=== PATIENT | female | born 1975 | race African-American/Black ===

== ENCOUNTER 2024-01-30 23:13 | Inpatient (IN) | payer BC, SELFPAY ==
[2024-01-30] VITALS (10 sets, daily range): BP systolic 107–146; BP diastolic 74–93
[2024-01-30 18:00] LABS: Glucose - Point of Care 91 mg/dl (70-99)
[2024-01-30] MEDS: NARCAN 1 MG IV (18:44)
[2024-01-30 18:47] LABS: Venous Blood Gas B.E. 1.3 mmol/L (-4 to +4); Venous Blood Gas HCO3 25.9 mmol/L (22-27); Venous Blood Gas O2 Sat % 95.6 %; Venous Blood Gas pCO2 40 mmHg (35-48); Venous Blood Gas pH 7.42 (7.32-7.43); Venous Blood Gas pO2 88 mmHg (30-50)
[2024-01-30 18:50] LABS: % Basophils 0.8 % (0-2); % Eosinophils 1.7 % (0-6); % Immature Granulocytes 0.3 % (0-0.5); % Lymphocytes 32.8 % (20.5-51.1); % Monocytes 9.8 % (1.7-9.3); % Neutrophils 54.6 % (42.2-75.2); Absolute Basophils 0.1 10^3/uL (0-0.2); Absolute Eosinophils 0.1 10^3/uL (0-0.7); Absolute Lymphocytes 2.2 10^3/uL (1.2-3.4); Absolute Monocytes 0.6 10^3/uL (0.1-0.6); Absolute Neutrophils 3.6 10^3/uL (1.4-6.5); Hematocrit 34.4 % (37.0-47.0); Hemoglobin 11.6 g/dL (12.0-16.0); Mean Corp Hgb Conc. 33.7 g/dL (33.0-37.0); Mean Corpuscular Hgb 29.7 pg (27.0-31.0); Mean Platelet Volume 9.7 fL (7.4-10.4); Nucleated Red Blood Cells % 0 %; Platelet Count 296 10^3/uL (130-400); Red Blood Cell Count 3.91 10^6/uL (4.20-5.40); Red Cell Dist. Width 13.2 % (11.5-14.5); White Blood Cell Count 6.6 10^3/uL (4.8-10.8)
[2024-01-30 19:06] LABS: Lactic Acid 0.7 mmol/L (0.7-2.0)
[2024-01-30 19:19] LABS: Urine Albumin Negative (Neg - Trace); Urine Bilirubin Negative (Negative); Urine Character Clear (Clear); Urine Color Yellow; Urine Glucose Negative (Negative); Urine Ketone 2+ (Negative); Urine Leukocyte Negative (Negative); Urine Nitrite Negative (Negative); Urine Occult Blood Trace (Negative); Urine Specific Gravity 1.015 (<1.030); Urine Urobilinogen Negative (Neg - 1+)
[2024-01-30 19:24] LABS: Urine Red Blood Cell 0-2 /HPF (0-2); Urine White Cell 0-2 /HPF (0-5)
[2024-01-30 19:29] LABS: TSH Reflex To Free T4 0.45 uIU/ml (0.47-4.68)
[2024-01-30 19:36] LABS: Amphetamines Positive (Negative); Barbiturates Negative (Negative); Benzodiazepines Negative (Negative); Buprenorphine Negative (Negative); Cocaine Negative (Negative); Marijuana Negative (Negative); Methadone Negative (Negative); Methamphetamines Negative (Negative); Opiates Negative (Negative); Phencyclidine Negative (Negative); Tricyclic Antidepressants Negative (Negative)
[2024-01-30 19:51] LABS: Fentanyl, Urine Negative (Negative)
--- NOTE | 2024-01-30 19:51 | ED.GENMED ---
History of Present Illness
General
Chief Complaint: Unresponsive
Source: spouse and ambulance crew
Exam Limitations: altered mental status
Time Seen by Provider: 01/30/24 18:02
Nursing documentation reviewed up to this point in time: agreed with
Travel History
Have you had any contact with someone who has COVID-19?: Unable to Answer
Do you have any symptoms of coronavirus? Fever > 100 degrees, chills, cough, shortness of breath, sore throat, loss of taste or smell, muscle aches, or headache?: Unable to Answer
History of Present Illness
History of Present Illness:
48-year-old female with apparent past medical history of anemia and 'intestinal surgery' who per the emergency department via EMS with a change in mental status. Patient is unable or unwilling to speak or participate in history or exam. Per EMS
report and police who also arrived in the emergency room: Patient apparently drove her car into a [employer] driveway, exited her car and entered the [employer] car. Apparently this person called 911 and when police arrived on the scene she was
sitting in the car not responding to their commands. She was carrying her hand bag which apparently had a pill bottle and it. Police brought the pill bottle; it is a green cylindrical unlabeled bottle that contains 3 different kinds of pills which
our pharmacist found are paroxetine, avanafil, and omeprazole. Per EMS her Accu-Chek was normal, vitals normal and she was transported to the emergency room. On my initial assessment she will wince and respond to painful stimuli, occasionally open
her eyes and blink but she will not speak or follow commands. Fortunately during the course of our initial assessment patient cell phone rang and I was able to answer it and speak to her on the phone (Kylee Scott, ). He
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 Apparently she lives with her and children in [place]. She apparently has some prior history of intestinal surgery and has a history of chronic
anemia but no other chronic medical problems. He says that she does not use drugs or drink alcohol. He says that today she picked her daughter up from school and dropped her off at home because daughter was sick. Apparently patient then went to
drop her sister off at work in [place]. No one has heard from her since. When I put the on speaker phone and brought him over to the patient patient then began to interact with her �when he asked her what was wrong she would
not tell him, would only repeat the phrase 'Kylee, I am leaving you.'
Review of Systems
Review of Systems
Unable to obtain full review of systems at this time due to: non-verbal
All Other Systems: Not applicable
Phy Exam
Physical Exam
Physical Exam:
General: Laying in bed eyes closed but winces to painful stimuli and will occasionally open eyes�she answered a few yes or no questions for nurses but not answering any questions for me, interacted with as above on the phone
Head: Normocephalic, atraumatic
Eyes: Conjunctiva normal, EOMI, pupils are equal round and reactive to light bilaterally approximately 4 mm
Throat: Airway intact, handling secretions
Neck: Trachea midline, supple without meningismus
Lungs: Clear to auscultation bilaterally, no wheezing, rales, rhonchi
Heart: Regular rate and rhythm, no murmurs, gallops, or rubs
Abd: Soft, non distended, no apparent tenderness
Neuro: Cranial nerves grossly intact, speech fluid, good tone in all extremities but she does not cooperate with full neurologic assessment�she does respond to painful stimuli in all extremities
Skin: no rash or signs of trauma
Extremities: Warm and well-perfused, good pulses in all extremities
Scores
Heart Failure Risk
Heart Failure Risk Score: Not Applicable
Heart Score for Chest Pain Patients
STEMI patient?: Not applicable
Withdrawal Assessment of Alcohol
Withdrawal Assessment Completed?: Not applicable
Course
Orders/Labs/Results
Orders:
Orders
01/30/24 17:59
Naloxone [Narcan] 2 mg .ROUTE .[facility]
01/30/24 18:00
Naloxone [Narcan] 1 mg IV NOW STA
01/30/24 18:02
Electrocardiogram (*1) Urgent
Reason for Study: QTc Monitoring
CT Head W/o Iv Contrast Urgent
Comment:
Reason For Exam: unresponsive
EKG- Treatment ONCE
01/30/24 18:21
Complete Blood Count/With Diff Urgent
Free T4 Urgent
Lactate Level [Lactic Acid] Urgent
TSH Reflex To Free T4 Urgent
Venous Blood Gas Urgent
%Oxygen/Room Air: 100
01/30/24 18:54
Drug Screen, Urine [Urine Drug Abuse Screen] Urgent
Date Specimen was Collected: 01/30/24
Time Specimen was Collected: 18:47
Fentanyl, Urine Urgent
Urinalysis Reflex To Culture Urgent
Date Specimen was Collected: 01/30/24
Time Specimen was Collected: 18:47
Urine Microscopic Reflex Cult Urgent
01/30/24 19:09
Acetaminophen Routine
Alcohol Routine
Comprehensive Metabolic Panel Routine
Creatine Phosphokinase Routine
Magnesium Routine
Salicylate Routine
01/30/24 19:38
Electrocardiogram (*1) Urgent
Reason for Study: Fatigue / Weakness
EKG- Treatment ONCE
01/30/24 21:06
CSF Cell Count Stat
Lyme PCR, DNA [S] Urgent
Spinal Fluid Glucose Urgent
Spinal Fluid Protein Urgent
CSF Culture with Gram Stain Urgent
[facility]ERTO Source: [facility]
Specimen Description:
Gram Stain Urgent
[facility] Source: [facility]
Specimen Description:
Meningitis Panel, CSF by PCR Urgent
[facility]O Source: [facility]
Specimen Description:
01/30/24 21:07
CSF Cell Count Urgent
CSF Tube Number: 1
Comment: Tube #1
Levetiracetam Injectable [Keppra] 1,000 mg IV NOW STA
Thiamine Injection 100 mg IV NOW STA
01/30/24 21:08
NEUROLOGY CONSULT Urgent
Consulting Provider: Jam Mosley
Was physician already notified: Yes
01/30/24 22:13
CefTRIAXone [Rocephin] 2,000 mg IV NOW STA
Vancomycin 2000 mg IVPB x 1 LOADING DOSE Vancomycin [Vancocin] 2,000 mg 0.9% Sodium Chloride 500 ml [Nss] 500 ml IV NOW
01/30/24 22:13
Acyclovir [Zovirax Injection] 847.54 mg 0.9% Sodium Chloride 250 ml [Nss] 250 ml IV NOW
Abnormal Lab Results
01/30/24 01/30/24 01/30/24
18:21 18:54 19:09
RBC 3.91 L 10^6/uL
(4.20-5.40)
Hgb 11.6 L g/dL
(12.0-16.0)
Hct 34.4 L %
(37.0-47.0)
Monocytes % 9.8 H %
(1.7-9.3)
VBG pO2 88 H mmHg
(30-50)
Sodium 134 L mmol/L
(135-145)
Creatinine 0.5 L mg/dL
(0.6-1.0)
AST 37 H U/L
(14-36)
TSH (Reflex) 0.45 L uIU/ml
(0.47-4.68)
Urine Ketones 2+ A
(Negative)
Ur Occult Blood Reflex Trace A
(Negative)
Salicylates < 1.0 L mg/dl
(2.0-20.0)
Acetaminophen < 10 L ug/ml
(10-30)
Ur Amphetamines Screen Positive H
(Negative)
01/30/24 18:21
01/30/24 19:09
Vital Signs
Initial and Last Documented VS:
Initial Vital Signs
Pulse Resp BP Pulse Ox
97 16 124/75 100
01/30/24 17:55 01/30/24 17:55 01/30/24 17:55 01/30/24 17:55
Last Documented Vital Signs
Temp Pulse Resp BP Pulse Ox
36.8 C 91 25 131/86 100
01/30/24 20:10 01/30/24 20:34 01/30/24 20:34 01/30/24 20:34 01/30/24 20:34
Procedures
Lumbar Puncture
Indication for procedure:: encephalopathy
Procedure completed by: Neto De Leon MD
If no, reason: Emergency procedure
Anesthesia/sedation: 1% Lidocaine
Preparation: cleaned with Betadine
Position: decubitis
Needle Size: 18 gauge
Needle Type: Lumbar Needle
Number of attempts: 5
Unsuccessful atempt - no CSF obtained: Unsuccessful attempt, no CSF obtained
Dressing applied to puncture site: bandaid
Complications: other (dry tap)
MDM/Problems Addressed
Differential Diagnosis Includes:
Intracranial hemorrhage, uremia, hypoglycemia, electrolyte derangement, seizure with postictal period, encephalitis, drug intoxication, alcohol intoxication, neuropsychiatric issue; stroke considered somewhat less likely based on exam
MDM/Problems Addressed:
48-year-old female presents with a change in her mental status as described above. On arrival we performed an Accu-Chek which was normal. Her vital signs are all within normal limits. She is protecting her airway and will occasionally talk but
seems more unwilling to talk than unable. She has no signs of trauma, physical exam is as documented above. We did give her some Narcan without any change in her mental state. She was taken for stat CT head which was negative for any acute
pathology. We placed a large-bore IV and labs were sent off including a CBC and a CMP, VBG, lactate/CPK, thyroid studies, alcohol level, UDS, urinalysis, hCG. Will check an EKG. Will monitor closely on telemetry and reassess after this initial
workup.
Lab work reviewed: CBC shows mild anemia�patient has known history of anemia. CMP shows no clinically significant abnormalities. Her thyroid studies are essentially unremarkable. Her urinalysis is negative for infection. Tylenol and salicylate
levels negative. Her UDS was positive for amphetamines but her presentation today is really not consistent with amphetamine intoxication. Her alcohol level is negative. Her sister is now bedside�sister says that patient had a very busy day but
was in her normal state of health when she was last seen this afternoon. At this point no fever or preceding illness to suggest TALENT DEVELOP[employer] infection but I think at this point we will proceed with a lumbar puncture with in mentation without any other clear
etiology. Case discussed with neurology for consultation�recommended thiamine, loading with Keppra in case this is seizure with prolonged postictal; agreed with LP. Patient will need to be admitted for further assessment consideration for MRI, EEG
and further workup if LP nondiagnostic.
Multiple attempts at LP unsuccessful here in the ER. With no fever or clear meningeal signs, discussed with hospitalist and will plan hold on antimicrobials for now, can consider IR LP in the morning. Loaded with Keppra, given thiamine per neuro
recs. Will admit for continued monitoring evaluation. Mental status unchanged. Case discussed with hospitalist for admission.
*Radiology
Radiology exam reviewed: preliminary read by ED provider and radiology read reviewed
*Pulse Oximetry
Patient hypoxic: no
*EKG
Interpreted by ED Provider?: Yes
Heart Rate: 74
Rate: normal
Rhythm: sinus
Dorris: normal axis
Interval: normal interval
QRS Pattern: normal QRS
Ischemia: no ischemia
*Critical Care Note
Total Time (30-74mins, 75-104mins- exclusive of procedures): 38
comment:
Critical care statement: A total of 38 minutes of critical care time was provided for this patient. This includes management of unstable vital signs, evaluation of the patient at bedside, frequent reassessment, discussion with
consultants/hospitalist, and review of pertinent medical records. This time was separate from time utilized to perform any aforementioned documented procedures
Data Reviewed
Source: spouse, ambulance crew and police
ED Attending Note
-
Portions of this chart may have been created with voice recognition software.� Occasional wrong word or��sound alike� substitutions may have occurred due to the inherent limitations of voice recognition software.
Discharge Plan
Departure
Prescriptions:
No Action
cetirizine 10 mg Tablet
10 mg PO QPM PRN (Reason: allergies)
levothyroxine 25 mcg Tablet
25 mcg PO DAILY
omeprazole 20 mg Capsule,Delayed Release(Dr/Ec)
20 mg PO DAILY
montelukast 10 mg Tablet
10 mg PO DAILY
lisdexamfetamine 60 mg Capsule
60 mg PO DAILY
Referrals:
UNKNOWN,NO INTERVIEW [Family Provider] -
Interventions
Interventions:
*Risk Screen - Suicide Last Done: 01/30/24 17:55
*General Assessment Last Done: 01/30/24 18:35
*Neglect/Abuse Screening Last Done: 01/30/24 18:35
ED- Fall Risk Assessment Last Done: 01/30/24 18:35
*ED COVID-19 Vaccine History Last Done: 01/30/24 18:35
ED- Neurological Assessment Last Done: 01/30/24 18:10
Discharge Date and Time
Print Language: FRISIAN
[2024-01-30 20:18] LABS: ALT (SGPT) 21 U/L (0-35); AST (SGOT) 37 U/L (14-36); Acetaminophen < 10 ug/ml (10-30); Alcohol None Detected; Alkaline Phosphatase 70 U/L (38-126); Blood Urea Nitrogen 11 mg/dl (7-17); Calcium 9.5 mg/dl (8.4-10.2); Carbon Dioxide 24 mmol/L (22-30); Chloride 104 mmol/L (98-107); Creatine Phosphokinase 127 U/L (30-135); Glucose 89 mg/dl (70-99); Magnesium 1.9 mg/dl (1.6-2.3); Potassium 4.1 mmol/L (3.5-5.1); Salicylate < 1.0 mg/dl (2.0-20.0); Sodium 134 mmol/L (135-145); Total Bilirubin 0.5 mg/dl (0.2-1.3); Total Protein 6.6 g/dl (6.3-8.2); eGFR > 60.00
[2024-01-30 20:19] LABS: Free T4 1.13 ng/dl (0.78-2.19)
--- NOTE | 2024-01-30 21:51 | PHANOTE ---
Addendum entered by Abimael Coy 01/30/24 23:34:
01/30/2024, med rec tech, per spouse, pt. manages her own meds.; spouse does not know what meds. pt. takes.
Original Note:
01/30/2024, med rec tech, used recent pharmacy fill data to compile a list of pt.'s meds.; pt. has no [facility] records and pt. obtunded at time of interview.
[2024-01-30] MEDS: KEPPRA 1000 MG IV (22:27)
[2024-01-30] MEDS: THIAMINE INJECTION 100 MG IV (22:27)
--- NOTE | 2024-01-30 23:04 | HPS.HSE ---
Family Physician
-
Family Physician: NO INTERVIEW UNKNOWN
Chief Complaint
-
Confusion / Lethargy
History of Present Illness
Patient is a 48y F with PMH significant for obesity s/p gastric bypass, anxiety / depression who presents to ED after being found confused / poorly responsive by police. History is obtained from sister at the bedside and from ED / EMS reports.
Patient was in her usual / good state of health this AM and all day today. She drove from her home in [place], [place] to [place] this AM to pick her daughter up from school. Daughter was having health issues related to anxiety according to
patient's sister. Patient then drove her sister to [place] to drop her off at work at [employer] [facility] [employer] Patient dropped her sister off at 2:50 PM and - again - seemed completely normal at that time.
Later this afternoon (timing of this is not clear) - patient pulled into a driveway, exited her vehicle and entered the homeowner's vehicle. Police were called and responded to the scene where they found the patient to be poorly responsive, not
answering questions or following commands. She was brought to the ED for further evaluation and treatment. She was not witnessed by EMS or ED staff to have any tonic-clonic seizure activity.
In the ED, patient has been intermittently responsive - answering some questions / following some commands. At other times she is fully somnolent and not responsive to even noxious / painful stimuli.
Her sister arrived at the bedside in the interim and is able to provide additional history.
Patient has no personal history of seizure disorder, etc. She has not had any recent illness, etc.
She has been under some increased stress of late with work, family, etc.
Patient was responsive for a time in the ED and spoke with her via phone. She repeated 'Riel, I am leaving you' but would say nothing else. Sister not aware of any specific marital issues.
Sister does state that their mother had a history of seizures that were very similar in nature - with unresponsiveness and typically followed by a period of amnesia. These seemed to be triggered by periods of heightened stress.
The patient's daughter also had a seizure a few months ago - also seemingly triggered by stress / anxiety.
At the time of my examination, patient is fully unresponsive. She will not answer questions. She is flaccid on my exam and not responsive to nail bed pressure, sternal rub, etc.
Medical History
Past Medical History
Past Medical History: Reports Other
Additional Past Medical History:
Obesity
Anxiety / Depression
GERD
Past Surgical History: Reports Other
Additional Past Surgical History:
Gastric Bypass
Small Bowel Resection(s)
Social History
Tobacco: Non-smoker
Alcohol: None
Drug: None
Family History
Family History: Other (Mother: Seizure Disorder Father: CAD / CVA Daughter: Anxiety / Seizure)
Allergies / Home Medications
Allergies reflects when Allergies were last updated in [employer].
Home Medications with original date entered in [employer]
Allergy/Medication List:
Allergies
Allergy/AdvReac Type Severity Reaction Status Date / Time
acetaminophen [From Percocet] Allergy Unknown Unknown Verified 01/30/24 22:32
NSAIDS (Non-Steroidal Allergy Unknown Unknown Verified 01/30/24 22:32
Anti-Inflamma
oxycodone [From Percocet] Allergy Unknown Unknown Verified 01/30/24 22:32
Home Medications
cetirizine 10 mg tablet 10 mg PO QPM PRN allergies 01/30/24
levothyroxine 25 mcg tablet 25 mcg PO DAILY 01/30/24
lisdexamfetamine 60 mg capsule 60 mg PO DAILY 01/30/24
montelukast 10 mg tablet 10 mg PO DAILY 01/30/24
omeprazole 20 mg capsule,delayed release 20 mg PO DAILY 01/30/24
Review of Systems
-
History Source: Family
A 12 point ROS was completed and negative except as noted: Yes
Constitutional: Denies Fever
Respiratory: Denies Cough
Abdomen/GI: Denies Nausea, Vomiting or Diarrhea
Neurological: Denies Headache
Physical Exam
Vital Signs
Vital Signs
Temp Pulse Resp BP Pulse Ox
98.3 F 62 16 107/74 99
01/30/24 20:10 01/30/24 22:15 01/30/24 22:15 01/30/24 22:01 01/30/24 22:15
Physical Exam
General: Other (48y F unresponsive in the ED.)
HEENT: Moist mucous membranes and Other (Pupils equal / reactive.)
Respiratory: Clear; No Wheezes, Rales or Rhonchi
Cardiac: S1/S2 and Regular Rhythm; No Murmur
GI: Soft, Non Tender, Non Distended and Normal Bowel Sounds
Musculoskeletal: No Clubbing, No Cyanosis and No Edema
Neuro: Other (Somnolent / unresponsive. No response to noxious / painful stimuli. Neck is supple / easy ROM. No evident focality / asymmetry.)
Laboratory Results
-
01/30/24 18:21
01/30/24 19:09
Laboratory Results
Lactic Acid 0.7 mmol/L (0.7-2.0) 01/30/24 18:21
Total Bilirubin 0.5 mg/dl (0.2-1.3) 01/30/24 19:09
AST 37 U/L (14-36) H 01/30/24 19:09
ALT 21 U/L (0-35) 01/30/24 19:09
Alkaline Phosphatase 70 U/L (38-126) 01/30/24 19:09
Impression/Plan
-
A/P: Patient is a 48y F with PMH significant for obesity and anxiety / depression who presents to ED after being found confused and unresponsive this afternoon.
Acute Encephalopathy
- Admit for further evaluation and treatment.
- Patient last seen well at 2:50 PM today and was in usual / good state of health at that time.
- ? seizure activity - especially given family history of the same.
- Keppra load given in the ED and will continue BID.
- Monitor for any evident seizure activity. Ativan PRN.
- Follow serial neurologic exams.
- Vitals in the ED are normal. Labs are completely normal.
- Low suspicion for meningitis as afebrile, no recent illness, neck supple, etc.
- LP attempted without success in the ED - will monitor off of antimicrobials.
- Neurology evaluation.
- MRI, EEG, etc in the AM.
- Follow for clinical improvement overnight.
- Consider Psych evaluation if no clear etiology of clinical presentation can be determined.
Morbid Obesity
- s/p prior gastric bypass surgery.
- Affects all aspects of care.
- History of SBO in the past requiring partial bowel resection.
- Abdomen is soft at present. Labs normal. Follow for any changes.
Anxiety / Depression
ADHD
- Outpatient meds include paroxetine and apparently amphetamines based on prior Rx and UDS.
- Meds on her person today were identified as paroxetine, omeprazole and avanafil(?) - which is an erectile dysfunction medication?
- Patient told her sister that she 'took her meds' today. Does not appear that she took any excess of medications based on bottle contents.
- Labs / exam / etc not consistent with amphetamine overdose, etc.
- Follow for clinical improvement.
- Consider Psych eval as noted above once patient is more alert / interactive.
Hypothyroidism
- Stable. TSH suppressed and T4 is normal on current dose of T4.
- Confirm meds in AM and resume usual T4 supplementation.
DVT Prophylaxis: SCDs
Code Status: Full
[2024-01-31] VITALS (16 sets, daily range): BP systolic 92–130; BP diastolic 62–109; PULSE 77
--- NOTE | 2024-01-31 00:13 | PTCARENOTE ---
Received pt from ED via stretcher. Pt unresponsive to verbal, tactile or sternal rub. Made a small noise while being turned in bed. Pupils equal and reactive. Respirations very shallow with a pulse ox at 99% on RA. BP 104/62 MAP 74 HR 68 RR 19.
Skin intact. Pt slightly diaphoretic. Accucheck on arrival was 96. at bedside and appears to be concerned for 's well-being. Pt resting in bed with call underwood in reach; bed alarm active.
[2024-01-31 00:16] LABS: Glucose - Point of Care 96 mg/dl (70-99)
--- NOTE | 2024-01-31 01:44 | PTCARENOTE ---
Pt AAOx3 now. States she doesn't remember what happened, just that she was driving earlier today and felt tired. Does not remember why she drove to [place] instead of going home. Pt left the room so pt could use the BSC. Asked the pt
if she felt safe at home. Pt was slightly delayed in responding but ultimately said yes, she felt safe at home and her could 'stay, for now' at the bedside. This RN explained that if her feelings on his presence changes, all she has to do
is let one of the staff know. Pt declines talking with social worker clinical.
--- NOTE | 2024-01-31 02:16 | PTCARENOTE ---
Pt rang call yasmine requesting that we have security screener her out of the hospital since he was refusing to leave. Pt started to become argumentative but ultimately did leave the floor prior to security arriving. Security did catch
up to him and escorted him outside the ED to wait for someone to pick him up. Pt states shes 'okay' right now but did not elaborate about any details. Pt not currently allowed at bedside per pt request.
[2024-01-31 05:42] LABS: Hematocrit 32.9 % (37.0-47.0); Mean Corp Hgb Conc. 33.4 g/dL (33.0-37.0); Mean Corpuscular Hgb 29.4 pg (27.0-31.0); Mean Platelet Volume 9.6 fL (7.4-10.4); Platelet Count 285 10^3/uL (130-400); Red Blood Cell Count 3.74 10^6/uL (4.20-5.40); Red Cell Dist. Width 13.1 % (11.5-14.5); White Blood Cell Count 7.5 10^3/uL (4.8-10.8)
[2024-01-31 06:12] LABS: ALT (SGPT) 19 U/L (0-35); AST (SGOT) 29 U/L (14-36); Albumin 3.7 g/dl (3.5-5.0); Alkaline Phosphatase 77 U/L (38-126); Blood Urea Nitrogen 7 mg/dl (7-17); Calcium 9.6 mg/dl (8.4-10.2); Carbon Dioxide 21 mmol/L (22-30); Chloride 105 mmol/L (98-107); Direct Bilirubin 0.4 mg/dl (0.0-0.4); Glucose 88 mg/dl (70-99); Iron 78 ug/dl (37-170); Potassium 3.8 mmol/L (3.5-5.1); Sodium 136 mmol/L (135-145); Total Bilirubin 0.7 mg/dl (0.2-1.3); Total Protein 6.2 g/dl (6.3-8.2); eGFR > 60.00
[2024-01-31 06:21] LABS: Percent Saturation 27 % (20-50); Total Iron Binding Capacity 279 ug/dl (265-497)
[2024-01-31 06:49] LABS: Vitamin B12 > 1000 pg/ml (239-931)
[2024-01-31] MEDS: KEPPRA 1000 MG IV ×2 (08:00→20:16)
[2024-01-31] MEDS: TYLENOL 650 MG PO (08:01)
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
--- NOTE | 2024-01-31 09:40 | W.PN.HOSP.TC ---
Today's Communication/Plan
-
Close monitoring of mental and neurologic status
Assessment / Plan
Assessment / Plan
Impression:
Patient is a 48y F with PMH significant for obesity and anxiety / depression who presents to ED after being found confused and unresponsive this afternoon.
Acute encephalopathy
Obesity.
Anxiety/depression
ADHD
Hypothyroidism.
Plan:
Acute encephalopathy.
Multiple differentials including atypical seizure with postictal state, intoxication, psychosis.
Patient is afebrile and nontoxic-appearing
Mental status improved and back to baseline
Neurologic examination with no focal findings
CT scan of the head on admission with no acute abnormalities
Low clinical suspicion for acute cerebral infection.
Acute psychosis including transient catatonic state could be possibility.
Neurology evaluation pending
Monitor closely.
Acuteness and transient paralysis, no clear benefit for additional brain imaging at this point.
? If requires EEG or antiepileptic treatment given no clear evidence of seizure, although patient does have a family history as well as being taking amphetamines that certainly reduced threshold for such.
May benefit from psychiatrist follow-up as outpatient
Anxiety/depression
ADHD
Outpatient regimen to be confirmed possibly includes paroxetine, amphetamine, although patient reports randomly taking prescriptive medications having in her purse.
Hypothyroidism
- Stable. TSH suppressed and T4 is normal on current dose of T4.
- Confirm meds in AM and resume usual T4 supplementation.
DVT Prophylaxis: SCDs
Anticipated Discharge: 24 - 48 hours
Subjective/Interval History
-
Date of Service: January 31, 2024
Objective Data
-
Labs:
Laboratory Results
01/31/24
05:24
WBC 7.5
Hgb 11.0 L
Hct 32.9 L
Plt Count 285
Sodium 136
Potassium 3.8
Chloride 105
Carbon Dioxide 21 L
BUN 7
Creatinine 0.4 L
Glucose 88
Calcium 9.6
Total Bilirubin 0.7
AST 29
ALT 19
Alkaline Phosphatase 77
Vital Signs:
Vital Signs
Temp Pulse Resp BP Pulse Ox
97.7 F 56 13 128/83 98
01/31/24 07:15 01/31/24 06:00 01/31/24 06:00 01/31/24 06:00 01/31/24 06:00
Physical Exam
-
General: Well Developed and No Apparent Distress
HEENT: Normocephalic, Atraumatic and Moist Mucous Membranes
Respiratory: Clear to Auscultation
Cardiac: Regular Rhythm and S1/S2; Negative Murmur, Rub or Gallop
GI: Soft, Nontender, Nondistended and Normal Bowel Sounds; Negative Organomegaly
Rectal: Deferred by Provider
Musculoskeletal: No Clubbing, No Cyanosis and No Edema
Skin: Negative Rash
Neuro: Awake, Alert, Oriented, AO x 3, No Motor Deficits and Nonfocal/Grossly Intact
--- NOTE | 2024-01-31 11:08 | PTCARENOTE ---
Assumed care of pt from night RN, pt AAOx3, makes needs known. Answers all questions appropriately, slightly withdrawn. Neurochecks wnl. Seen by Neuro, MRI, LP, and EEG pending. Will continue to monitor through shift.
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
[2024-01-31] MEDS: PROTONIX PO (16:07)
--- NOTE | 2024-01-31 17:48 | PTCARENOTE ---
Pt c/o indigestion/GERD after eating. Pt verbalized that she takes Omeprazole 40mg daily for that. Dr. Ochoa ordered Protonix PO as our pharmacy does not have omeprazole. When this RN informed pt of that, pt refused the Protonix. MD calix.
[2024-02-01] VITALS (11 sets, daily range): BP systolic 104–147; BP diastolic 71–101
--- NOTE | 2024-02-01 05:18 | PTCARENOTE ---
Patient has no complaints at this time. no seizure activity. neuro checks unchanged. pt appears very fatigued, depressed and withdrawn. Mother called for update. Pt up ad tennille to BR, reports dizziness continues. Call underwood and tray table within reach.
[2024-02-01] MEDS: KEPPRA 1000 MG IV (08:48)
[2024-02-01] MEDS: FLUSH (NSS) 1 FLUSH IV (08:49)
--- NOTE | 2024-02-01 12:28 | W.DS.TRANS ---
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
-
Discharge Instructions:
Discharge Diagnosis/Procedures Altered mental status with negative neurologic
work up
Diet Regular
Instructions:
Stand-Alone Forms:
Changes to Home Medications: No
Discharge Medications:
DC Medications w/original date entered in [facility]
levothyroxine 25 mcg tablet 25 mcg PO DAILY Thyroid 01/30/24
montelukast 10 mg tablet 10 mg PO DAILY ASTHMA 01/30/24
omeprazole 20 mg capsule,delayed release 20 mg PO DAILY GERD 01/30/24
Home Medication Changes
Pending Results: No
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
--- NOTE | 2024-02-01 16:27 | W.PN.HOSP.TC ---
Today's Communication/Plan
-
Psychiatric evaluation
Discharge planning
Assessment / Plan
Assessment / Plan
Impression:
Patient is a 48y F with PMH significant for obesity and anxiety / depression who presents to ED after being found confused and unresponsive this afternoon.
Acute encephalopathy
Obesity.
Anxiety/depression
ADHD
Hypothyroidism.
Plan:
Acute encephalopathy.
Multiple differentials including atypical seizure with postictal state, intoxication, psychosis.
Patient is afebrile and nontoxic-appearing
Mental status improved and back to baseline
Neurologic examination with no focal findings
CT scan of the head on admission with no acute abnormalities
Low clinical suspicion for acute cerebral infection.
Acute psychosis including transient catatonic state could be possibility.
Neurology input appreciated
With low clinical suspicion for seizure, Keppra had been discontinued
MRI of the brain with no acute abnormalities
Will ask psychiatry to see for clearance with concern for possible psychotic episode/psychiatric fugue state.
Anxiety/depression
ADHD
Outpatient regimen to be confirmed possibly includes paroxetine, amphetamine, although patient reports randomly taking prescriptive medications having in her purse.
Hypothyroidism
- Stable. TSH suppressed and T4 is normal on current dose of T4.
DVT Prophylaxis: SCDs
Anticipated Discharge: 24 - 48 hours
Subjective/Interval History
-
Date of Service: February 01, 2024
Objective Data
-
Vital Signs:
Vital Signs
Temp Pulse Resp BP Pulse Ox
98.0 F 82 18 109/82 96
02/01/24 07:15 02/01/24 12:00 02/01/24 12:00 02/01/24 12:00 02/01/24 08:30
I&O
01/31/24 02/01/24 02/02/24
06:59 06:59 06:59
Intake Total 480 / 480 240 / 240
Balance 480 / 480 240 / 240
Physical Exam
-
General: Well Developed and No Apparent Distress
HEENT: Normocephalic, Atraumatic and Moist Mucous Membranes
Respiratory: Clear to Auscultation
Cardiac: Regular Rhythm and S1/S2; Negative Murmur, Rub or Gallop
GI: Soft, Nontender, Nondistended and Normal Bowel Sounds; Negative Organomegaly
Rectal: Deferred by Provider
Musculoskeletal: No Clubbing, No Cyanosis and No Edema
Skin: Negative Rash
Neuro: Awake, Alert, Oriented, AO x 3 and Nonfocal/Grossly Intact
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
[2024-02-01] MEDS: PROTONIX PO (20:51)
[2024-02-01] MEDS: PROTONIX 20 MG PO (20:51)
[2024-02-01] MEDS: KEPPRA IV (20:53)
--- NOTE | 2024-02-01 20:56 | PTCARENOTE ---
Pt requesting Protonix for heart burn this evening. Pt refused earlier today. Administered per DEC. Pt aware to call for assistance prior to getting out of bed, since she reports she still feels dizzy upon standing. Call underwood within reach.
[2024-02-02] VITALS (12 sets, daily range): BP systolic 94–122; BP diastolic 65–91
[2024-02-02] MEDS: KEPPRA 1000 MG IV (08:11)
[2024-02-02] MEDS: PROTONIX 20 MG PO (08:12)
--- NOTE | 2024-02-02 12:14 | W.PN.HOSP.TC ---
Today's Communication/Plan
-
Psychiatry consultation
PT eval for dizziness
Meclizine
Discharge planning
Assessment / Plan
Assessment / Plan
Impression:
Patient is a 48y F with PMH significant for obesity and anxiety / depression who presents to ED after being found confused and unresponsive this afternoon.
Acute encephalopathy
Dizziness/vertigo suspect benign positional vertigo.
Obesity.
Anxiety/depression
ADHD
Hypothyroidism.
Plan:
Acute encephalopathy.
Multiple differentials including atypical seizure with postictal state, intoxication, psychosis.
Patient is afebrile and nontoxic-appearing
Mental status improved and back to baseline
Neurologic examination with no focal findings
CT scan of the head on admission with no acute abnormalities
Low clinical suspicion for acute cerebral infection.
Acute psychosis including transient catatonic state could be possibility.
Neurology input appreciated
With low clinical suspicion for seizure, Keppra had been discontinued
MRI of the brain with no acute abnormalities
Will ask psychiatry to see for clearance with concern for possible psychotic episode/psychiatric fugue state.
Dizziness/vertigo.
Suspect benign positional vertigo
Recurrent according to patient.
Denies nausea vomiting
MRI of the brain with no evidence of CVA
PT evaluation
Meclizine
Anxiety/depression
ADHD
Outpatient regimen to be confirmed possibly includes paroxetine, amphetamine, although patient reports randomly taking prescriptive medications having in her purse.
Hypothyroidism
- Stable. TSH suppressed and T4 is normal on current dose of T4.
DVT Prophylaxis: SCDs
Anticipated Discharge: Within 24 hours
Subjective/Interval History
-
Date of Service: February 02, 2024
Objective Data
-
Vital Signs:
Vital Signs
Temp Pulse Resp BP Pulse Ox
97.9 F 67 17 104/66 95
02/02/24 07:00 02/02/24 06:00 02/02/24 06:00 02/02/24 06:00 02/01/24 16:00
I&O
02/01/24 02/02/24 02/03/24
06:59 06:59 06:59
Intake Total 480 / 480 1630 / 1630
Balance 480 / 480 1630 / 1630
Physical Exam
-
General: Well Developed and No Apparent Distress
HEENT: Normocephalic, Atraumatic and Moist Mucous Membranes
Respiratory: Clear to Auscultation
Cardiac: Regular Rhythm and S1/S2; Negative Murmur, Rub or Gallop
GI: Soft, Nontender, Nondistended and Normal Bowel Sounds; Negative Organomegaly
Rectal: Deferred by Provider
Musculoskeletal: No Clubbing, No Cyanosis and No Edema
Skin: Negative Rash
Neuro: Awake, Alert, Oriented, AO x 3 and Nonfocal/Grossly Intact
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
--- NOTE | 2024-02-02 15:39 | CM ---
Patient with Dx Acute encephalopathy, Dizziness/vertigo suspect benign positional vertigo. Psych Consult noted. PT recommends outpatient therapy. Patient downgraded to Med/Surg level of care.
Met with patient. Patient aware Dr Oneil wishes her to stay overnight and she is willing to stay. Patient reported to CM earlier today she has not called PD to inquire about her vehicle, and has not contacted her family.
CM continuing to follow.
Plan ask patient if she would like script for outpatient PT.
Plan as per Psych - probably home with family.
[2024-02-02] MEDS: ANTIVERT 12.5 MG PO ×2 (16:53→21:32)
--- NOTE | 2024-02-02 19:41 | PTCARENOTE ---
pt being transferred to room 325. report given to Valeria.
--- NOTE | 2024-02-02 23:33 | PTCARENOTE ---
Pt transferred to [facility]. Pt AAOx3, flat affect. No c/o pain. Ambulating to bathroom with standby assist, using call underwood appropriately. Pt afebrile, VSS. Lungs clear, on room air. Pt with good PO intake and appetite. No N/V or stools. Skin
intact. Call underwood within reach and bed placed in lowest position. Pt oriented to room. Awaiting further plan.
[2024-02-03 07:00] VITALS: BP 97/69
[2024-02-03] MEDS: PROTONIX 20 MG PO (07:39)
[2024-02-03] MEDS: ANTIVERT 12.5 MG PO (07:39)
--- NOTE | 2024-02-03 11:02 | PTOTSP ---
pt currently requires supervision to no assistance to complete simple ADLs, functional transfers, ambulation. pt reports dizziness with turns. provided education to maintain balance while walking, change of positions. pt has met acute OT goals, no
overt deficits noted. will sign off at this time.
[2024-02-03 11:10] VITALS: BP 106/70; BP 114/79; PULSE 98
--- NOTE | 2024-02-03 12:05 | W.PN.UPDATE ---
Update Note
Progress Note Update
called a program called [facility] in [place] after googling patient's cupola melter name nancy upton. the patient was indeed treated at this program but ms upton was not in today. the person i spoke to who was her 'press assistant and feeder' told me she would try to
get ms upton to call me on my cell. she is regular about her appts. she had an appt yesterday she missed explained by her being here at . last office note from november 21. there was nothing in that note that was alarming or would suggest that
patient is suicidal or a risk to herself or others.
--- NOTE | 2024-02-03 14:01 | W.DS.TRANS ---
DC Summary - [employer]
-
Discharge Instructions:
Discharge Diagnosis/Procedures Altered mental status with negative neurologic
work up
Diet Regular
Instructions:
Stand-Alone Forms:
Changes to Home Medications: Yes
Discharge Medications:
DC Medications w/original date entered in [facility] by Chantilly Lace
levothyroxine 25 mcg tablet 25 mcg PO DAILY Thyroid 01/30/24
montelukast 10 mg tablet 10 mg PO DAILY ASTHMA 01/30/24
omeprazole 20 mg capsule,delayed release 20 mg PO DAILY GERD 01/30/24
Home Medication Changes
Adderall stopped
Pending Results: No
--- NOTE | 2024-02-03 14:11 | W.PN.UPDATE ---
Update Note
Progress Note Update
patient seen chart reviewed. discussed w dr lewis and nursing. nursing spoke to patient's mother who seemed supportive and wishes patient to reside w her. i asked nursing if mom will pick her up. she did not know. i will call mother. the
patient is more together today. she still cannot recall the events immediately sloop [place] nor can she understand why she did what she did but she is resolved that her marriage is over and she will take steps to separate. she is NOT suicidal. there is
nothing to suggest harm to self or others she is willing to have family pick her up. she will followup with her psych prescriber ms nancy upton who has not unfortunately called me back. i did talk to mom... sister's bf will be picking her up in
the next hour or so and patient had talked to her sister. mom already spoke to the patient and felt that the patient is much better today. mom says patient worries about her and tries 'to spare me as much she can ' but mom says she can handle it.
patient's children are with their father presently.
--- NOTE | 2024-02-03 14:39 | CM ---
Reviewed chart, spoke with attending who confirmed that patient is medically cleared for discharge. Met with patient who confirmed that she has a ride back to [place] which is where she resides. Her sister's boyfriend will be taking her home. She
expressed no other needs from CM dept. Attending, RN, supervisor core drilling all updated.
Plan: Case management will continue to follow and assist with discharge planning. Home back to [place].
[2024-02-03] MEDS: ZOFRAN 4 MG IV (14:47)
--- NOTE | 2024-02-04 10:13 | CM ---
CM received call from mother post-discharge requesting update on pt
Made aware of dc planning day prior
Mother notes she has not been in contact with pt but pt's sister has been in contact with the pt
== END 2024-02-03 16:11 | disposition home or self-care (01) | DRG 72 ==
LOC: 3 WEST ACU 23:13
PROVIDERS: ADMITTING PHYSICIAN Hospitalist; ATTENDING PHYSICIAN Internal Medicine; CONSULT PHYSICIAN Psychiatry & Neurology Neurology; EMERGENCY PHYSICIAN Emergency Medicine; OTHER PHYSICIAN Psychiatry & Neurology Psychiatry
PROC: 00JU3ZZ Inspection of Spinal Canal, Percutaneous Approach (ICD-10-PCS; 2024-01-30)
DX: G93.40 Encephalopathy, unspecified (principal); D64.9 Anemia, unspecified; F41.9 Anxiety disorder, unspecified; F32.A Depression, unspecified; K21.9 Gastro-esophageal reflux disease without esophagitis; E66.01 Morbid (severe) obesity due to excess calories; F90.9 Attention-deficit hyperactivity disorder, unspecified type; F15.90 Other stimulant use, unspecified, uncomplicated; E03.9 Hypothyroidism, unspecified; Z91.83 Wandering in diseases classified elsewhere; Z98.84 Bariatric surgery status; Z90.49 Acquired absence of other specified parts of digestive tract; Z82.3 Family history of stroke; Z82.49 Family history of ischemic heart disease and other diseases of the circulatory system; Z82.0 Family history of epilepsy and other diseases of the nervous system; Z88.6 Allergy status to analgesic agent; Z88.5 Allergy status to narcotic agent; Z87.19 Personal history of other diseases of the digestive system
CPT/HCPCS: 62270; 70450; 70551; 80053; 80143; 80179; 80306; 80307; 81003; 81015; 82077; 82248; 82550; 82607; 82805; 82962; 83540; 83550; 83605; 83735; 84439; 84443; 85025; 85027; 93005; 96374; 96375; 97116; 97163; 97166; 97530; 97535; 99291